=== PATIENT | female | born 1965 | race Caucasian/White ===

== ENCOUNTER → 2017-02-03 | Outpatient (CLI) | payer MEDICARE ==
--- NOTE | 2017-02-03 13:56 | CT ---
EXAM DESCRIPTION: Chest w/o Contrast: CT CLINICAL HISTORY: CLAVICULAR AND STERNUM SEPARATION COMPARISON: 3-D breast tomosynthesis screening mammogram on this visit. TECHNIQUE: Spiral-axial scans at 5.0 mm intervals through the lungs and thorax without IV contrast. 2.5 mm lung algorithm axial reconstructions. Coronal and sagittal 2.0 Mm reconstructions. Total Exam DLP: 725.62 mGy-cm. This exam was performed according to our departmental dose-optimization program which includes automated exposure control, adjustment of the mA and/or kV according to patient size and/or use of iterative reconstruction technique; to reduce radiation dose to as low as reasonably achievable (ALARA). FINDINGS: The right sternoclavicular joint space is unremarkable but there is minimal widening of the left sternoclavicular joint space. No fracture. Mild arthrosis in the left first sternal costal joint. No fracture. No definite bone destruction or soft tissue mass. Thoracic spondylosis multiple levels. No compression type vertebral body fractures. Levoscoliosis. Remainder of the sternum is unremarkable. Pleural-based blebs in the upper lung richardson along with interstitial process and [id number]-type markings. Small focal areas of groundglass density also more prevalent in the upper lobes. Lower mid and lower lung zones relatively unremarkable. No abnormal nodules. No pulmonary infiltrates or masses. No pleural effusion or pneumothorax. Thyroid gland not well seen. No soft tissue masses in the base of the neck. Nonreactive lymph nodes in the mediastinum and bilateral hilar areas. Sensitivity decreased due to lack of IV contrast. Left hilar calcifications. Sub-Diaphragmatic retroperitoneal space with no free air or fluid. Normal size and density of the adrenal glands and spleen. Included pancreas and stomach are unremarkable. IMPRESSION: 1. Left sternoclavicular joint space wider than the right. No definite soft tissue mass or bone destruction. No fracture. Arthrosis in the left first sternocostal joint. 2. Emphysematous changes in the upper lung richardson, no evidence of acute pulmonary process. Electronically signed by: Benny Riojas MD 02/03/2017 1:55 PM CDT
--- NOTE | 2017-02-04 11:40 | MAM ---
EXAM DESCRIPTION: 3D Screening BILATERAL : Digital Mammography. CLINICAL HISTORY: 51 years Female SCREENING . No complaints. Remote family history of breast cancer. Postmenopausal. No HRT. COMPARISON: Baseline study at this facility. No prior reports available. TECHNIQUE: Bilateral CC and MLO projection full-field images, 3-D tomosynthesis digital mammographic technique. Also bilateral synthesized CC/ MLO full-field images. CAD not utilized. FINDINGS: The breast parenchymal density pattern is: Scattered areas of fibroglandular density. No skin thickening or nipple retraction bilateral axillary lymph nodes. Bilateral intramammary lymph nodes. No focal, stellate mass or density, focal asymmetry , and no suspicious microcalcifications bilaterally. Stable mammograms compared to prior study, taking into account differences in mammographic technique IMPRESSION: BI-RADS CATEGORY: 2 - BENIGN FINDINGS. FOLLOW UP: Routine digital bilateral screening, one year interval from January 2017. Written communication explaining the IMPRESSION and follow-up, will be mailed to the patient and referring health care provider. According to the [employer], yearly mammograms are recommended starting at age 40 and continuing as long as a woman is in good health. Any breast change noted on a breast self-exam should be reported promptly to the patient's healthcare provider. Breast MRI is recommended for women with an approximately 20-25% or greater lifetime risk of breast cancer, including women with a strong family history of breast or ovarian cancer and women who have been treated for Hodgkin's disease. A negative mammographic report should not delay tissue diagnosis in patients with significant clinical history or physical findings. Extremely dense breast tissue limits the sensitivity of digital mammography. Electronically signed by: Benny Riojas MD 02/04/2017 11:39 AM CDT
== END | disposition home or self-care (01) ==
LOC: CT 09:16
PROVIDERS: ATTEND General Practice
DX: S23.420A Sprain of sternoclavicular (joint) (ligament), initial encounter (principal)
CPT/HCPCS: 71250; 77063; G0202

== ENCOUNTER 2018-03-25 16:09 | Emergency (ER) | payer MEDICARE ==
[2018-03-25] MEDS ORDERED: KETOROLAC TROMETHAMINE INJ 30 MG/ML VIAL IV ONE (16:21)
[2018-03-25] MEDS ORDERED: diphenhydrAMINE HCL 50 MG/ML VIAL IV ONE (16:21)
[2018-03-25] MEDS ORDERED: HALOPERIDOL LACTATE INJ 5 MG/ML VIAL IM ONE (16:23)
[2018-03-25] MEDS ORDERED: METOCLOPRAMIDE HCL INJ 10 MG/2 ML VIAL IV ONE (16:23)
--- NOTE | 2018-03-25 16:27 | ED.PDOC ---
History of Present Illness - General Chief Complaint: Headache Stated Complaint: EVANS,dizziness Time Seen by Provider: 03/25/18 16:20 Source: patient Exam Limitations: no limitations - History of Present Illness Initial Comments: SHE COMES TO THE ED WITH A HEADACHE AND DIZZINESS. SHE WAS SEEN AT THE LOCAL CLINIC AND BECAUSE SHE HAD A 100.5 FEVER AND THE [id number] SYMPTOMS WAS TESTED FOR INFLUENZA- WAS NEGATIVE. SHE STATES THAT SHE WOKE UP WITH THIS POUNDING EVANS, 01/28, ASSOCIATED WITH DIZZINESS AND NAUSEA. SHE ALSO HAS A COUGH. Severity: severe Improving Factors: nothing Worsening Factors: nothing Associated Symptoms: cough, fever/chills, headaches, malaise, nausea/vomiting Allergies/Adverse Reactions: Allergies NO KNOWN ALLERGY Allergy (Verified 04/16/16 17:04) Home Medications: Ambulatory Orders Levothyroxine Sodium [Synthroid] 0.175 mg PO DAILY 09/29/14 Citalopram Hydrobromide 20 mg PO DAILY 09/15/15 HYDROcodone 10MG/APAP 325MG [[place] 10/325] 1 tab PO BID 09/15/15 Calcium Carbonate-Vit D-Vit C- [Os-Saurabh Ultra 600 mg] 1 tab PO TID #30 tab Diphenoxylate/Atropine [Lomotil Tab] 2.5 mg PO Q6H PRN #20 tab 04/18/16 Ondansetron Tab [Zofran Tab] 4 mg PO Q6H PRN #15 tab 04/18/16 Review of Systems - Review of Systems Constitutional: States: fever, malaise EENTM: States: nose congestion Respiratory: States: cough Cardiology: States: no symptoms reported Gastrointestinal/Abdominal: States: nausea Genitourinary: States: no symptoms reported Musculoskeletal: States: no symptoms reported Skin: States: no symptoms reported Neurological: States: headache Endocrine: States: no symptoms reported Hematologic/Lymphatic: States: no symptoms reported Past Medical History (General) - Patient Medical History Hx Seizures: No Hx Stroke: No Hx Dementia: No Hx Asthma: Yes Hx of COPD: No Hx Cardiac Disorders: No Hx Congestive Heart Failure: No Hx Pacemaker: No Hx Hypertension: No Hx Thyroid Disease: Yes Hx Diabetes: No Hx Gastroesophageal Reflux: No Hx Renal Disease: No Hx Cancer: No Hx of HIV: No Hx Hepatitis C: No Hx MRSA: No - Vaccination History Hx Tetanus, Diphtheria Vaccination: Yes Hx Influenza Vaccination: No Hx Pneumococcal Vaccination: Yes - 2011 - Social History Hx Tobacco Use: Yes Hx Chewing Tobacco Use: Yes Hx Alcohol Use: No Hx Substance Use: No Hx Substance Use Treatment: No Hx Depression: Yes Hx Physical Abuse: No Hx Emotional Abuse: No Hx Suspected Abuse: No - Female History Patient : No - last period 7 yrs ago Family Medical History - Family History Mother Living Status: Still Living Hx Family Asthma: No Hx Family Congestive Heart Failure: Yes Hx Family Hypertension: Yes Hx Family Stroke: No Hx Cardiac Disease: Yes Hx Family Diabetes: Yes Hx Family Cancer: No Father Living Status: Still Living Hx Family Asthma: No Hx Family Congestive Heart Failure: No Hx Family Hypertension: No Hx Family Stroke: No Hx Cardiac Disease: Yes Hx Family Diabetes: No Physical Exam - Physical Exam General Appearance: Anxious, Obvious distress, Well Developed, Well Groomed, Well Hydrated, Well Nourished Eye Exam: bilateral normal Ears, Nose, Throat: hearing grossly normal, normal ENT inspection, normal pharynx Neck: non-tender, full range of motion, supple, normal inspection Respiratory: chest non-tender, lungs clear, normal breath sounds, no respiratory distress, no accessory muscle use Cardiovascular/Chest: normal peripheral pulses, regular rate, rhythm, no edema, no gallop, no JVD, no murmur Peripheral Pulses: radial,right: 2+, radial,left: 2+ Gastrointestinal/Abdominal: normal bowel sounds, non tender, soft, no organomegaly, no pulsatile mass Back Exam: normal inspection Extremity: normal range of motion Neurologic: 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 CHEST X RAY: NEGATIVE 03/25/18 18:17 HEADACHE IS GONE- FEELS MUCH BETTER. - Results/Orders Results/Orders: 03/25/18 17:40 Calcium Gluconate Inj 1 gm Sodium Chloride 0.9% 50Ml [NS 50ml] 50 ml IVPB ONCE Laboratory Results WBC 8.3 K/mm3 (4.8-10.8) 03/25/18 16:36 RBC 4.26 M/mm3 (4.20-5.40) 03/25/18 16:36 Hgb 13.9 gm/dL (12.0-16.0) 03/25/18 16:36 Hct 41.1 % (36.0-47.0) 03/25/18 16:36 MCV 96.6 fl (81.0-99.0) 03/25/18 16:36 MCH 32.5 pg (27.0-31.0) H 03/25/18 16:36 MCHC 33.7 g/dL (33.0-37.0) 03/25/18 16:36 RDW 13.9 % (11.5-14.5) 03/25/18 16:36 Plt Count 302 K/mm3 (130-400) 03/25/18 16:36 MPV 8.1 fl (7.40-10.4) 03/25/18 16:36 Absolute Neuts (auto) 5.60 K/uL (1.8-6.8) 03/25/18 16:36 Absolute Lymphs (auto) 2.10 K/uL (1.0-3.4) 03/25/18 16:36 Absolute Monos (auto) 0.40 K/uL (0.2-0.8) 03/25/18 16:36 Absolute Eos (auto) 0.10 K/uL (0.0-0.4) 03/25/18 16:36 Absolute Basos (auto) 0.10 K/uL (0.0-0.1) 03/25/18 16:36 Neutrophils % 67.2 % (42.0-78.0) 03/25/18 16:36 Lymphocytes % 25.9 % (20.0-50.0) 03/25/18 16:36 Monocytes % 4.9 % (2.0-9.0) 03/25/18 16:36 Eosinophils % 1.0 % (1.0-5.0) 03/25/18 16:36 Basophils % 1.0 % (0.0-2.0) 03/25/18 16:36 Sodium 139 mmol/L (135-145) 03/25/18 16:36 Potassium 3.5 mmol/L (3.6-5.0) L 03/25/18 16:36 Chloride 100 mmol/L (101-111) L 03/25/18 16:36 Carbon Dioxide 29 mmol/L (21-31) 03/25/18 16:36 Anion Gap 13.5 (12-18) 03/25/18 16:36 BUN 15 mg/dL (7-18) 03/25/18 16:36 Creatinine 0.88 mg/dL (0.6-1.3) 03/25/18 16:36 BUN/Creatinine Ratio 17.0 (10-20) 03/25/18 16:36 Random Glucose 94 mg/dL (70-105) 03/25/18 16:36 Serum Osmolality 278.1 mOsm/L (275-295) 03/25/18 16:36 Calcium 6.5 mg/dL (8.4-10.2) L* 03/25/18 16:36 Total Bilirubin 0.2 mg/dL (0.2-1.0) 03/25/18 16:36 AST 20 IU/L (10-42) 03/25/18 16:36 ALT 15 IU/L (10-60) 03/25/18 16:36 Alkaline Phosphatase 84 IU/L (42-121) 03/25/18 16:36 Serum Total Protein 8.0 gm/dL (6.4-8.2) 03/25/18 16:36 Albumin 4.3 g/dl (3.2-5.5) 03/25/18 16:36 Globulin 3.7 gm/dL (2.3-3.5) H 03/25/18 16:36 Albumin/Globulin Ratio 1.2 (1.1-1.9) 03/25/18 16:36 Urine Color Yellow (Yellow) 03/25/18 16:51 Urine Appearance Clear (Clear) 03/25/18 16:51 Urine pH 7.0 (4.5-7.8) 03/25/18 16:51 Ur Specific [place] 1.020 (1.005-1.030) 03/25/18 16:51 Urine Protein Negative mg/dL 03/25/18 16:51 Urine Glucose (UA) Negative mg/dL (Negative) 03/25/18 16:51 Urine Ketones Negative mg/dL (NEGATIVE) 03/25/18 16:51 Urine Blood Trace-intact (Negative) H 03/25/18 16:51 Urine Nitrite Negative 03/25/18 16:51 Urine Bilirubin Negative (NEGATIVE) 03/25/18 16:51 Urine Urobilinogen 0.2 mg/dL (0.2-1.0) 03/25/18 16:51 Ur Leukocyte Esterase Negative (Negative) 03/25/18 16:51 Urine RBC 1-3 /hpf 03/25/18 16:51 Urine WBC 0-1 /hpf 03/25/18 16:51 Ur Epithelial Cells 1-3 /hpf 03/25/18 16:51 Urine Bacteria 0 03/25/18 16:51 Departure - Departure Clinical Impression: Migraine aura without headache, Febrile illness, acute, Hypocalcemia Time of Disposition: 18:18 Disposition: Discharge to Home or Self Care Condition: Good Departure Forms: ED Discharge - Pt. Copy, Patient Portal Self Enrollment Instructions: DI for Headache Diet: resume usual diet Activity: increase activity as tolerated Referrals: González Mo MD [Primary Care Provider] - 1-2 Weeks Home Medications: Ambulatory Orders Levothyroxine Sodium [Synthroid] 0.175 mg PO DAILY 09/29/14 Citalopram Hydrobromide 20 mg PO DAILY 09/15/15 HYDROcodone 10MG/APAP 325MG [[place] 10/325] 1 tab PO BID 09/15/15 Calcium Carbonate-Vit D-Vit C- [Os-Saurabh Ultra 600 mg] 1 tab PO TID #30 tab Diphenoxylate/Atropine [Lomotil Tab] 2.5 mg PO Q6H PRN #20 tab 04/18/16 Ondansetron Tab [Zofran Tab] 4 mg PO Q6H PRN #15 tab 04/18/16
--- NOTE | 2018-03-25 17:04 | RAD ---
EXAM DESCRIPTION: Chest,1 View CLINICAL HISTORY: 53 years Female, FEVER, COUGH COMPARISON: Previous study September 29, 2014 TECHNIQUE: AP portable chest. FINDINGS: Heart size is prominent with prominent central pulmonary vascularity. This appears similar to previous study. No consolidating infiltrate. No pulmonary mass or worrisome nodule. No pneumothorax or pleural effusion. Bones are unremarkable. IMPRESSION: No consolidating infiltrate. Electronically signed by: Manjeet Dukes MD 03/25/2018 5:02 PM [employer]
--- NOTE | 2018-03-25 17:04 | CT ---
EXAM DESCRIPTION: Head CLINICAL HISTORY: SEVERE HEADACHE, DIZZINESS COMPARISON: None available TECHNIQUE: Contiguous axial images through the head were obtained without intravenous contrast administration. Sagittal and coronal reconstructions were reviewed. FINDINGS: No evidence of acute major vascular territorial infarct or intraparenchymal hemorrhage. No intra-axial or extra-axial fluid collections are identified. The ventricles and cisterns appear normal in caliber. The sella and suprasellar regions appear normal. The structures of the posterior fossa are intact. The globes are intact bilaterally. The visualized paranasal sinuses and mastoid air cells are well-aerated. Review of the bones demonstrates no gross instability. IMPRESSION: This exam was performed according to our departmental dose-optimization program, which includes automated exposure control, adjustment of the mA and/or kV according to patient size and/or use of iterative reconstruction technique. Electronically signed by: Marlo Grant MD 03/25/2018 5:03 PM [facility]
[2018-03-25] MEDS ORDERED: CALCIUM GLUCONATE INJ 1 GM in SODIUM CHLORIDE 0.9% 50ML 50 ML IVPB ONE (17:40)
[2018-03-25] MEDS ORDERED: SODIUM CHLORIDE 0.9% 50ML 50 ML ONE (18:03)
[2018-03-25] MEDS ORDERED: CALCIUM GLUCONATE INJ 1 GM/10 ML VIAL ONE (18:03)
[2018-03-25 18:13] VITALS: O2SAT 95
[2018-03-25] MEDS ORDERED: ACETAMINOPHEN 500 MG TAB PO ONE (19:03)
[2018-03-25] MEDS ORDERED: ACETAMINOPHEN 500 MG TAB ONE (19:04)
[2018-03-25 19:25] VITALS: BP 115/59; TEMP 99.8
== END 2018-03-25 19:25 | disposition home or self-care (01) ==
LOC: ER 16:09
DX: G43.009 Migraine without aura, not intractable, without status migrainosus (principal); R50.9 Fever, unspecified; E83.51 Hypocalcemia; F32.9 Major depressive disorder, single episode, unspecified; J45.909 Unspecified asthma, uncomplicated; E07.9 Disorder of thyroid, unspecified; Z87.891 Personal history of nicotine dependence
CPT/HCPCS: 36415; 70450; 71045; 80053; 81001; 85025; A4216; J1200; J1630; J1885; J2765

== ENCOUNTER → 2019-03-24 | Outpatient (CLI) | payer MEDICARE | LOC: GMAM 17:12 | PROVIDERS: ATTEND Family Medicine | DX: E03.9 Hypothyroidism, unspecified (principal); Z13.220 Encounter for screening for lipoid disorders ==

== ENCOUNTER 2019-07-01 | Emergency (ER) | payer MEDICARE | END 2019-07-01 17:11 | disposition home or self-care (01) | DX: E86.0 Dehydration (principal); E83.51 Hypocalcemia; E66.01 Morbid (severe) obesity due to excess calories; R51 Headache; E89.0 Postprocedural hypothyroidism; J45.909 Unspecified asthma, uncomplicated; F32.9 Major depressive disorder, single episode, unspecified; Z68.39 Body mass index [BMI] 39.0-39.9, adult; Z88.5 Allergy status to narcotic agent; Z79.899 Other long term (current) drug therapy; Z87.891 Personal history of nicotine dependence ==

== ENCOUNTER → 2020-03-06 | Outpatient (CLI) | payer MEDICARE | LOC: GMAM 17:37 | PROVIDERS: ATTEND Family Medicine | DX: L03.116 Cellulitis of left lower limb (principal) ==

== ENCOUNTER → 2020-03-07 | Outpatient (CLI) | payer MEDICARE ==
--- NOTE | 2020-03-08 10:02 | US ---
EXAM DESCRIPTION: Venous,Lower Extremity LT: ULTRASOUND. CLINICAL HISTORY: CELLULITIS OF LOWER LIMB. Left lower extremity. COMPARISON: None Available. TECHNIQUE: Foreman-scale and doppler sonographic evaluation of the deep venous system of the left lower extremity. FINDINGS: Doppler evaluation shows normal color flow and normal phasicity and augmentation of the left common femoral vein, left femoral vein, popliteal vein, left greater saphenous vein, junction with the CFV. Also normal color flow and normal phasicity and augmentation of the peroneal, and posterior tibial vein. The left lower extremity deep veins were completely compressible; normal occlusion with transducer pressure. Foreman-scale survey showed no echogenic thrombus within these veins. No abnormal fluid collection. IMPRESSION: 1. Duplex ultrasound evaluation of the left lower extremity deep venous system showing no evidence of thrombosis. No abnormal fluid collection. Electronically signed by: Benny Riojas MD 03/08/2020 10:01 AM [facility]
== END ==
LOC: US 11:05
PROVIDERS: ATTEND Family Medicine
DX: M79.605 Pain in left leg (principal); L03.116 Cellulitis of left lower limb

== ENCOUNTER → 2020-05-04 | Outpatient (CLI) | payer MEDICARE | LOC: GMAM 17:00 | PROVIDERS: ATTEND Family Medicine | DX: R19.7 Diarrhea, unspecified (principal) ==

== ENCOUNTER → 2020-05-05 | Outpatient (CLI) | payer MEDICARE | LOC: LAB.O 12:07 | PROVIDERS: ATTEND Family Medicine | DX: R19.7 Diarrhea, unspecified (principal); R50.9 Fever, unspecified ==